=== PATIENT | female | born 1990 | race Caucasian/White ===

== ENCOUNTER 2024-01-11 14:44 | Emergency (ER) | payer MEDICAID, SELFPAY ==
[2024-01-11 14:45] VITALS: BP 133/72; PULSE 89; RESP 16; TEMP 36.4; O2SAT 99; BMI 31.2
--- NOTE | 2024-01-11 14:58 | EX.ED.VISEXT ---
HPI History of Present Illness Chief Complaint: Bite Detail of Chief Complaint: Dog bite left long finger Informant: patient Occured/Mechanism Comment: Bit by dog Onset/Context/Timing Onset: Hours Context: Sudden Onset Timing: Continuous Quality of Pain: Dull, Aching and Throbbing Location: Distal left long finger Current Severity: Mild Maximum Severity: Moderate Worsened by: Palpation or movement Relieved by: Nothing Associated Symptoms Associated Symptoms: Positive for Loss of Funtion Narrative Narrative: Patient is a 33-year-old [id number] female who presents with injury to left long finger. She was bit by a dog that she was planning on adopting. Dog shots are up-to-date. She has no antibiotic allergies. She complains of pain. She denies numbness or tingling. Tetanus Immunization: Unknown Prior similar symptoms: No Recent Illness/Hospitalization: No ROS ROS ED Integumentary Reports other Details: Laceration due to dog bite x 2 Neurologic Neurologic: Denies paresthesias or weakness Hematologic/Lymphatic Hematologic/Lymphatic: Denies easy bleeding or easy bruising [facility] Medical History IBS (irritable bowel syndrome) Home Medications amoxicillin 875 mg-potassium clavulanate 125 mg tablet 875 mg (0.875 x 875-125 mg) PO Q12H #6 TABLETS 01/11/24 [Rx Last Taken Unknown] Allergy/AdvReac Type Severity Reaction Status Date / Time No Known Allergies Allergy Verified 01/11/24 14:45 Surgical History History of tonsillectomy Social History (Updated 01/11/24 @ 15:[address] Dominick Gomez MD) household members: spouse and children Smoking Status: Never smoker EXAM Physical Exam Const Vital Signs: 01/11/24 14:45 Temperature 97.5 F L Temperature Source Temporal Respiratory Rate 16 Blood Pressure 133/72 H Blood Pressure Mean 92 Pulse Ox 99 Oxygen Delivery Method Room Air Positive well nourished and well developed General Appearance ED: well developed and NAD HEENT normocephalic and atraumatic Eyes PERRL and EOMs intact bilaterally Resp normal respiratory effort Cardio regular rate and regular rhythm Extremity Negative for normal to inspection Extremity Narrative: The extensor commonest tendon is intact. The flexor digitorum superficialis and flexor digitorum profundus are intact. Patient does not have normal to point discrimination distal to the DIP joint of the left long finger. There is no subungual hematoma noted. General Extremety ED: Yes deformity and tenderness General Extremity: deformity Neuro oriented x3 and CN's II-XII intact bilaterally Neuro Narrative: Median, radial and ulnar function are intact. As noted under the extremity portion of the medical record to point discrimination is absent Sensorium / Orientation: alert Psych mental status grossly normal and thought process normal Skin Skin Narrative: Dog bite with 2 areas that are opened volar distal left long finger Trauma: laceration MDM MDM MDM Narrative Medical decision making narrative: Will obtain x-ray to rule out tooth fragments and rule out distal phalanx fracture. Will anesthetize the finger. The wound will be irrigated. Will place on Augmentin and patient's been told since the wound is distal to wrist closure will not be cosmetic. Radiography Chest X-Ray - ED: Read by ED Physician (Three-view x-ray of the long finger reveals soft tissue defect and swelling over the distal phalanx. There is no fracture or tooth fragments noted.) Diagnostic Testing: Clinical Impression(s) from Imaging Studies Finger X-Ray 01/11/24 15:15 IMPRESSION: Soft tissue swelling and injury. No fracture. Electronically Signed: Hudson Kwan MD at 15:26 EDT , Procedures Other Procedures Procedure(s): The larger of the 2 lacerations is 2 cm and the other 1 that goes to the paronychia. This measures 1 cm. Digit was anesthetized by digital block using 1% lidocaine without epinephrine. Total of 3 cc was infused. Patient's finger was completely anesthetized. The wound was irrigated with 500 cc of sterile water. The smallest laceration was approximated with 1 simple erupted suture. The larger one because it was irregular jagged required 2 stitches to approximate it. These were not closed tightly since the wound is due to a dog bite and distal to the wrist. Patient was placed on Augmentin. She was referred to plastics for follow-up. Discharge Plan Triage Chief Complaint: Bite ED Provider: Dominick Gomez Dx/Rx/DC Orders Prescriptions: New amoxicillin-pot clavulanate [amoxicillin-pot clavulanate] 875-125 mg tablet 875 mg PO Q12H Qty: 6 0RF Primary Care Provider: Joey Landa Referrals: Sahrifa Rocha MD [Med Staff - Active Staff] - 2 Days for wound check [facility],Out of [Non-Staff] - Disposition Disposition: Home, Self Care
--- NOTE | 2024-01-11 15:06 | ED.RN ---
PT VERBALIZES THAT HER TETANUS HAD TO BE UP TO DATE FOR HER JOB AND THAT WAS CHECKED IN OCT OF THIS YEAR. DECLINED GETTING ONE TODAY.
--- NOTE | 2024-01-11 15:15 | RAD_ITS ---
STUDY: X-RAY - LEFT HAND, ATTENTION THIRD FINGER REASON FOR EXAM: Female, 33 years old. Injury/Pain -- Long finger TECHNIQUE: 3 view(s) of the finger were obtained. COMPARISON: None. FINDINGS: Normal metacarpal head. Normal metacarpophalangeal joint. Normal proximal phalanx. Normal middle phalanx. Normal distal phalanx. Normal proximal interphalangeal joint. Normal distal interphalangeal joint. There is no demonstrated fracture. There is distal soft tissue swelling and injury. There is no radiopaque foreign body. RAD/Finger(s) Min 2 Views IMPRESSION: Soft tissue swelling and injury. No fracture. Electronically Signed: Hudson Kwan MD at 15:26 EDT ,
[2024-01-11] MEDS: Lidocaine 1% (20 ml mdv) 20 ML Vial INFILT (15:30)
[2024-01-11] MEDS: Amox/Clavulanate 875 MG Tablet PO (16:14)
[2024-01-11 16:21] VITALS: BP 128/71; PULSE 76; RESP 16; TEMP 36.6; O2SAT 99
== END 2024-01-11 16:23 | disposition home or self-care (01) ==
PROVIDERS: Emergency Provider Emergency Medicine; PCP Student in an Organized Health Care Education/Training Program; Visit Provider Emergency Medicine
DX: S61.253A Open bite of left middle finger without damage to nail, initial encounter (principal); W54.0XXA Bitten by dog, initial encounter
CPT/HCPCS: 12002; 73140; 99284